=== PATIENT | male | born 1950 | race Caucasian/White ===

== ENCOUNTER → 2021-12-10 | Outpatient (REF) | payer MEDICARE, OTHER ==
[~2021-12-10] MED LIST: ASPI81TA86 PO; CELE1CAP9; LOSA100T45 PO
== END ==
LOC: M SMT PRO 10:52
PROVIDERS: ATTEND Urology
DX: C61 Malignant neoplasm of prostate (principal)

== ENCOUNTER → 2022-05-26 | Outpatient (REF) | payer MEDICARE, OTHER ==
[2022-05-26 11:12] LABS: ALBUMIN 4.4 GM/DL (3.2-5.2); BLOOD UREA NITROGEN 16 MG/DL (7-18); CALCIUM LEVEL 9.6 MG/DL (8.8-10.2); CARBON DIOXIDE LEVEL 27 MEQ/L (21-32); CHLORIDE LEVEL 104 MEQ/L (98-107); CREATININE FOR GFR 1.01 MG/DL (0.70-1.30); GLOMERULAR FILTRATION RATE > 60.0 (>42); GLUCOSE, FASTING 106 MG/DL (70-100); PHOSPHORUS LEVEL 3.5 MG/DL (2.5-4.9); POTASSIUM SERUM 4.3 MEQ/L (3.5-5.1); SODIUM LEVEL 138 MEQ/L (136-145)
== END ==
LOC: M WUC 09:17
PROVIDERS: ATTEND Physician Assistant
DX: U07.1 COVID-19 (principal)

== ENCOUNTER → 2023-01-06 | Outpatient (REF) | payer MEDICARE, OTHER ==
[~2023-01-06] MED LIST changes: -LOSA100T45 PO; +LOSA100T46 PO
== END ==
LOC: M SMT 10:06
PROVIDERS: ATTEND Urology
DX: C61 Malignant neoplasm of prostate (principal); R97.21 Rising PSA following treatment for malignant neoplasm of prostate